=== PATIENT | male | born 1945 | race Caucasian/White ===

== ENCOUNTER 2016-11-08 13:14 | Day surgery (SDC) | payer MEDICARE, BC ==
[~2016-11-08 13:14] MED LIST: RINGERS SOLUTION,LACTATED 1,000 ML IV PRN
--- OUTSIDE RECORDS SUMMARY | 2016-11-08 13:18 | XMS REPORT | Continuity of Care Document ---
:1945 Author Organization [facility] ([facility]) Address [place] [address] Phone [phone] Care Team Providers Name Role Phone Baltazar Florentino Primary Care Provider [phone] Source Comments This disclosure is being made pursuant to the Care Everywhere program, applicable federal and state laws, and may not contain all informaitonavailable regarding this patient.[facility] ([facility]) Active Allergies and Adverse Reactions No Known Allergies Current Medications Prescription Sig. Disp. Refills Start Date End Date Status amLODIPine 5 mg tablet Take 5 mg by mouth Active daily. nitroglycerin 0.[address] 0.4 mg under Active SL tablet the tongue every 5 minutes as needed. Maximum of 3 tablets in 15 minutes. metoPROLol succinate Take 50 mg by Active 50 mg XL tablet mouth daily. polyethylene glycol Take 17 g by mouth 11/21/2015 Active 3350 (MIRALAX) 17 every evening. gram/dose powder aspirin 81 mg EC Take 81 mg by Active tablet mouth daily. albuterol 90 Use 1-2 Puffs by 8.5 g 11 04/22/2016 Active mcg/Actuation inhaler inhalation every 4 hours as needed. clonazePAM 1 mg tablet Take 1 mg by mouth 09/30/2016 Active at bedtime. finasteride 5 mg Take 1 tablet by 09/13/2016 Active tablet mouth daily. tamsulosin 0.4 mg Take 1 capsule by 07/26/2016 Active capsule mouth daily at noon after a meal. ketoconazole (NIZORAL) Apply topically 3 Active 2 % shampoo times weekly. trolamine (ASPERCREME) Apply topically 4 Active 10 % topical lotion times daily as needed. HYDROcodone-acetaminop Take 1-2 tablets 20 tablet 0 10/04/2016 Active hen 5-325 mg per by mouth every 6 tablet hours as needed. diazePAM 2 mg tablet Take 1-2 tablets 20 tablet 0 10/04/2016 Active (2-4 mg total) by mouth 3 times daily as needed. Active Problems Problem Noted Date Pneumonia 02/16/2016 Overview: IV antibiotics. Dehydration 02/16/2016 Overview: Monitor labs, urine output. Fluid boluses given. Paroxysmal atrial fibrillation 02/12/2016 Malaise 02/10/2016 Overview: monitor Leukocytosis 02/10/2016 Overview: Monitor. Started on IV vancomycin/zosyn Hypotension 02/10/2016 Overview: Fluid boluses. IV antibiotics started. Sepsis 02/10/2016 Overview: Concern for sepsis. Admitted with fever, leukocytosis, hypotension, afib. Started on IV antibiotics. Blood cultures obtained. UA negative. Severe protein-calorie malnutrition 02/10/2016 Overview: Formatting of this note may be different from the original. Malnutrition Assessment Malnutrition assessment date: 02/10/16 Dietitian evaluation: Severe protein-calorie malnutrition Type: Acute illness/injury Malnutrition etiology: lung cancer s/p lobectomy Energy intake: Less than or equal to 50% intake of estimated energy needs for greater than or equal to 5 days Weight loss: Greater than 5% in 1 month [7% in 2.5 weeks] Subcutaneous fat loss: Mild Muscle loss: Mild Was malnutrition present on admission? Yes Nutrition consulted. Fever 02/09/2016 Last Assessment & Plan: Monitor. Started on IV antibiotics. Pleural effusion 02/09/2016 Last Assessment & Plan: Chest tube remains in place. Monitor. Persistent air leak 01/28/2016 Overview: Chest tube to mini 500 dry seal vac. Last Assessment & Plan: Monitor. Pulmonary consulted for bronchoscopy to evaluate for BPF. 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 SOB (shortness of breath) 01/28/2016 Overview: monitor Cough 01/28/2016 Overview: Monitor. Atelectasis 01/28/2016 Overview: Pulmonary toilet Adenocarcinoma of lung 01/23/2016 Last Assessment & Plan: T1N0. Monitor surgical site healing. Preoperative cardiovascular examination 12/30/2015 Precordial pain 12/30/2015 COPD (chronic obstructive pulmonary disease) Last Assessment & Plan: Monitor pulmonary status. Hypertension Last Assessment & Plan: Monitor. Will continue to hold home blood pressure medications at this time. Tobacco abuse Last Assessment & Plan: Monitor respiratory status Resolved Problems Problem Noted Date Resolved Date New onset a-fib 02/10/2016 02/24/2016 Most Recent Encounters Date Type Specialty Providers Description 10/15/2016 Telephone Emergency Medicine Matthew Fenton RN Chief Comp: Follow-up 10/11/2016 Hospital Encounter Radiology Jm Parra, Chief Comp: Patient MD Reported Reason For Visit 10/11/2016 Orders/Notes Cancer Center Minal Charles MD 10/05/2016 Telephone Cancer [place] Mariann Boothe Chief Comp: Minal Solomon MD Appointment Info 10/04/2016 Hospital Encounter Emergency Medicine Samuel Freire, Dx: Acute MD right-sided back pain, unspecified back location (Primary Dx) 10/04/2016 Hospital Encounter Radiology Sara Hartley MD Chief Comp: Patient Reported Reason For Visit 10/04/2016 Hospital Encounter Radiology Baltazar Garcia MD Chief Comp: Patient Reported Reason For Visit 10/04/2016 Office Visit Med Pulmonary Mariann Boothe, Dx: History of lung Oncology Minal Solomon MD cancer (Primary Dx) 09/23/2016 Telephone Cancer Center Selene Perez Chief Comp: Appointment Info 09/23/2016 Telephone Cancer Center Esperanza Weiner Chief Comp: Back Pain 09/09/2016 Office Visit Med Pulmonary Mariann Boothe Chief Comp: Patient Oncology Minal Solomon MD Reported Reason For Visit Social History Tobacco Use Types Packs/Day Years Used Date Former Smoker Cigarettes 1.5 62 Quit: 12/24/2015 Smokeless Tobacco: Never Used Last Filed Vital Signs Vital Sign Reading Time Taken Blood Pressure 155/84 10/04/2016 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 Pulse 54 10/04/2016 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 Temperature 35.7 C (96.3 F) 10/04/2016 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 Respiratory Rate 20 10/04/2016 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 Height 1.778 m (5' 10") 10/04/2016 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 Weight 97.977 kg (216 lb) 10/04/2016 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 Body Mass Index 30.99 10/04/2016 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 Oxygen Saturation 95% 10/04/2016 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 Plan of Care Health Maintenance Due Date Last Done Comments Hepatitis B Vaccine (1 of 3 - Primary Series) 1945 Tdap Vaccine 02/02/1955 Lipid Disorder Screening 02/02/1962 Td Vaccine 02/02/1962 Colonoscopy 02/02/1994 Prostate Cancer Screening 02/02/1994 Zoster Vaccine 2004 Pneumococcal Vaccine (1 of 2 - PCV13) 02/02/2009 Influenza Vaccine: Seasonal (#1) 03/01/2016 Results from Last [address] - STORE ONLY (10/11/2016 11:35 AM)Only the most recent of2 resultswithin the time period is included.EXTERNAL MRI - STORE ONLY (10/04/2016 11:08 AM)
[2016-11-08] MEDS ORDERED: RINGERS SOLUTION,LACTATED 1,000 ML IV ONE (14:20)
[2016-11-08 17:24] VITALS: BP 120/72
--- NOTE | 2016-11-09 12:14 | OR ---
Operative Report - Dictated Report Narrative: OPERATIVE REPORT DATE OF OPERATION: 11/08/2016 PREOPERATIVE DIAGNOSIS: No recent dedicated colon studies. Sigmoid thickening on CT scan and diverticulosis. POSTOPERATIVE DIAGNOSIS: 4 mm polyp in the cecum (pathology pending). Significant sigmoid diverticulosis OPERATION: Colonoscopy with hot biopsy forceps polypectomy in the cecum SURGEON: Robert Zhang MD ANESTHESIA: ANA Bowers CRNA INDICATIONS FOR PROCEDURE: The patient is a 71-year-old male referred by Dr. Jessica Mary. The patient had a recent CT scan revealing diverticulosis and sigmoid thickening. His last colonoscopy was in 2008. FINDINGS: 4 mm area of polypoid change in the cecum. Significant sigmoid diverticulosis but no other lesions in the sigmoid. NARRATIVE OF PROCEDURE: The patient was identified in the holding area, and prior to the administration of anesthetic, a multidisciplinary timeout was observed. With the patient in the left lateral position and after the administration of intravenous sedation, the perineum was inspected. There was no evidence of pilonidal disease or skin breakdown. The external appearance of the anus was normal. Sphincter tone was good. The flexible fiberoptic colonoscope was inserted into the rectum which was insufflated with air. The rectal mucosa and submucosal vascular pattern appeared normal, the prep was seen to be complete. The scope was advanced through the sigmoid colon, which was tortuous and contained numerous large non-impacted noninflamed diverticular openings. The scope was advanced up the descending colon, and around the splenic flexure where the triangular haustral architecture of the transverse colon was seen. The scope was advanced across the transverse colon, around the hepatic flexure to the cecum, where the confluence of tenia and the ileocecal valve were identified. The mucosa at this level appeared normal. There was a single area of possible polypoid change on a proximal cecal fold which was biopsied and entirely destroyed with electrocautery. The site was seen to be complete and hemostatic. The scope was then slowly withdrawn in a circular fashion so that all aspects of colonic mucosa were inspected. The colon was relatively normal in course and caliber. The haustral architecture appeared well preserved throughout with no evidence of external compression. The mucosa and submucosal vascular pattern appeared normal, specifically there was no gross evidence to suggest colitis or inflammatory bowel disease and no AV malformations were seen. The diverticulosis was moderate to severe in degree and confined primarily to the sigmoid colon. The sigmoid was well seen on both entry and exit and no other suspicious lesions were identified. The scope was gradually withdrawn to the level of the rectum. As much insufflated air as possible was removed. The scope was withdrawn from the patient and the procedure terminated. The patient tolerated the anesthetic and procedure well without complication and was transferred back to the ambulatory surgery area awake and in stable condition. The patient remained stable throughout a period of postoperative observation. He denied abdominal discomfort, was able to tolerate by mouth intake, and was up without assistance. I shared the operative findings with the patient and he was given copies of the photographs which appear in the medical record. He was discharged home with instructions not to engage in hazardous activity today, but may resume normal activity tomorrow, and advance diet as tolerated. He is to continue those medications as listed in the history and physical exam. I made arrangements to contact him with the biopsy reports and will make additional recommendations for treatment and follow-up based upon those results. A pamphlet on diverticular disease was reviewed with him and given to him and suggestion made for trial of Benefiber or equivalent. Reviewed and electronically signed
[2016-11-12] MEDS ORDERED: RINGERS SOLUTION,LACTATED 1,000 ML IV PRN (08:50)
== END 2016-11-08 13:15 | disposition home or self-care (01) ==
LOC: AMB 13:14
PROVIDERS: ATTEND Surgery
PROC: 0DBH8ZX Excision of Cecum, Via Natural or Artificial Opening Endoscopic, Diagnostic (ICD-10-PCS; principal; 2016-11-08 14:30)
DX: Z12.11 Encounter for screening for malignant neoplasm of colon (principal); D12.0 Benign neoplasm of cecum; K57.30 Diverticulosis of large intestine without perforation or abscess without bleeding; I10 Essential (primary) hypertension; J44.9 Chronic obstructive pulmonary disease, unspecified; I48.91 Unspecified atrial fibrillation; F17.200 Nicotine dependence, unspecified, uncomplicated; Z68.31 Body mass index [BMI] 31.0-31.9, adult

== ENCOUNTER 2017-01-11 16:36 | Emergency (ER) | payer MEDICARE, BC ==
--- NOTE | 2017-01-11 17:02 | ERNOTE ---
Date of Service: 01/11/17 Time Seen by Provider: 01/11/17 16:52 Stated Complaint: TROUBLE BREATHING Presenting Symptoms:: cough Source: patient, RN notes reviewed, past records Exam Limitations: no limitations Immunizations: IMMUNIZATION HX Immunizations Up to Date Yes History of Influenza Vaccine No Hx Pneumococcal Vaccination No Allergies/Adverse Reactions: Allergies ampicillin [Ampicillin] Allergy (Mild, Verified 01/11/17 16:43) Lips swell gabapentin Adverse Reaction (Mild, Verified 01/11/17 16:43) dizziness, drowsiness tramadol Adverse Reaction (Mild, Verified 01/11/17 16:43) dizziness, drowsiness Home Medications: HOME MEDICATIONS Metoprolol Succinate [Toprol Xl] 50 mg PO HS 12/21/12 [Last Taken Unknown] amLODIPine BESYLATE [Norvasc (Amlodipine)] 5 mg PO DAILY 12/21/12 [Last Taken Unknown] Acetaminophen [Tylenol] 1,000 mg PO QAM 11/03/16 [Last Taken Unknown] Aspirin [Aspirin Enteric Coated] 81 mg PO DAILY 11/03/16 [Last Taken Unknown] Finasteride [Proscar] 5 mg PO DAILY 11/03/16 [Last Taken Unknown] Nitroglycerin [Nitrostat] 0.4 mg SL [id number] PRN 11/03/16 [Last Taken Unknown] Polyethylene Glycol 3350 [Miralax] 17 gm PO HS 11/03/16 [Last Taken Unknown] Psyllium Husk (with Sugar) [Metamucil Powder] 1 tbs PO DAILY 11/03/16 [Last Taken Unknown] Tamsulosin HCl [Flomax] 0.4 mg PO DAILY@1800 11/03/16 [Last Taken Unknown] Trolamine Salicylate/Aloe Vera [Aspercreme 10% Cream] 1 applic TP QID 11/03/16 [ Last Taken Unknown] clonazePAM [Klonopin] 1 mg PO HS 11/03/16 [Last Taken Unknown] Doxycycline Monohydrate 100 mg PO BID #20 tablet 01/11/17 [Last Taken Unknown] Pantoprazole Sodium [Protonix] 40 mg PO DAILY 01/11/17 [Last Taken Unknown] Pantoprazole Sodium [Protonix] 40 mg PO DAILY #30 tab 01/11/17 [Last Taken Unknown] - History of Present Ilness Narrative: Max is a 71 y/o male who presents to the ED for a cough that has been ongoing for about 5 months. He reports that the cough is not all that frequent, but when he does cough, he feels like he might pass out. He also reports some nasal congestion and sore throat. He has COPD and a history of adenocarcinoma of the right lung for which he underwent a lobectomy a year ago. He was a life long smoker until that time. He reports exertional dyspnea, but states this is not worse than usual and has not increased. He denies any chest pain. He sees pulmonology at [facility] and has an appointment for follow up next month. He contacted them yesterday about his symptoms and was directed to come here for evaluation. Associated Symptoms: Reports: cough, shortness of breath, facial pain, nasal congestion, headache. Denies: chest pain/soreness, wheezing, nasal drainage, dizziness, lightheadedness, muscle aches, fever/chills Prior Treatment: Denies: recently seen Review of Systems - Review of Systems Constitutional: Absent: fatigue, malaise, decreased activity level EYE: Present: no symptoms reported ENT: Present: See HPI Respiratory: Present: See HPI Cardiology: Present: See HPI Gastrointestinal/Abdominal: Absent: nausea, abdominal pain, eating less, drinking less Genitourinary: Present: no symptoms reported Musculoskeletal: Absent: back pain, muscle pain Skin: Absent: rash, lesions Neurological: Present: See HPI Endocrine: Present: no symptoms reported Hematologic/Lymphatic: Present: no symptoms reported Psych: Present: no symptoms reported - Patient's Past Medical History Patient History - Medical: GERD, Other Patient History - Cardiac/Respiratory: Atrial Fibrillation, COPD, Hypertension, Pneumonia, CPAP/BiPAP Home Use, Sleep Apnea Patient History - Cancer: Lung, Surgical Treatment Patient History - Surgical Procedures: Colonoscopy, Other Patient History - Other: None - Family History Mother Family History - Medical: , Diabetes Type 2 Family History - Cardiac/Respiratory: CHF Family History - Cancer: No pertinent family hx Sister Family History - Medical: Other Family History - Cardiac/Respiratory: No pertinent hx Family History - Cancer: No pertinent family hx Son Family History - Medical: No pertinent hx Family History - Cardiac/Respiratory: No pertinent hx Family History - Cancer: Leukemia Paternal Uncle Family History - Medical: No pertinent hx Family History - Cardiac/Respiratory: Other Family History - Cancer: No pertinent family hx - Social History Living Situations: home Abuse History: No History of abuse Psych History: No pertinent hx Smoking Status: Former smoker Alcohol Use: none Drug Use: other - Immunizations Immunizations Up to Date: Yes Hx Pneumococcal Vaccination: No History of Influenza Vaccine: No Physical Exam - Physical Exam General Appearance: Present: wd/wn, alert, no apparent distress Eye Exam: Normal inspection: bilateral Ears, Nose, Throat: Present: nasal congestion, pharyngeal erythema. Absent: abnormal TM (R), abnormal TM (L), pharyngeal swelling Neck: Present: normal inspection, supple, full range of motion, other - mild tenderness over anterior cervical nodes Respiratory: Present: no respiratory distress, no accessory muscle use, lungs clear, decreased breath sounds. Absent: expiration (prolonged), rales, wheezing Cardiovascular/Chest: Present: regular rate, rhythm, no murmur, normal peripheral pulses Extremity Exam: Present: normal inspection, no edema Neurological Exam: Present: alert, oriented, normal mood/affect, no motor/ sensory deficits Skin Exam: Present: normal color, warm/dry ED Progress - Results and Orders Patient's Lab Results:: I have reviewed the patient's lab results. - Vital Signs Patient's Vital Signs:: I have reviewed the patient's vital signs. Vital Signs: Vital Signs 01/11/17 16:39 Temperature 36.6 C Pulse Rate 68 Respiratory 12 Rate Blood Pressure 161/88 O2 Sat by Pulse 94 Oximetry - X-Ray X-Ray #1 X-Ray: chest Interpretation: Reviewed by me X-ray Comments: Technique: Frontal and lateral views of the chest are evaluated. (2) views. Comparison: Prior exams, most recent is CT chest dated October 07, 2016. Findings: Postsurgical changes are again demonstrated at the right lung base. There is unchanged blunting of the right lateral and right posterior costophrenic angles. The left lateral and posterior costophrenic angles are sharp. No pneumothorax. No focal consolidation. The cardiac silhouette and mediastinal contours are unchanged. The pulmonary vasculature is normal. Atherosclerotic changes are present throughout the visualized thoracic aorta. The osseous structures are remarkable for degenerative changes. No acute osseous findings. IMPRESSION: No acute pulmonary findings. No significant interval change. Electronically signed by Alexandr Zarate D.O.. Alexandr Zarate DO - Progress/Reassessment Chief Complaint: Cough Departure - Departure Clinical Impression: COPD (chronic obstructive pulmonary disease) Qualifiers: COPD type: COPD with acute exacerbation Qualified Code(s): J44.1 - Chronic obstructive pulmonary disease with (acute) exacerbation Disposition: Home Follow Up Needed Condition: Stable Instructions: Chronic Obstructive Pulmonary Disease Exacerbation, [id number] Additional Instructions: Contact your power originator to move up your appointment, return to ER if symptoms worsen Referrals: Baltazar Engle MD [Primary Care Provider] - Prescriptions: Doxycycline Monohydrate 100 mg PO BID #20 tablet Pantoprazole Sodium [Protonix] 40 mg PO DAILY #30 tab
--- OUTSIDE RECORDS SUMMARY | 2017-01-11 17:07 | XMS REPORT | Continuity of Care Document ---
:1945 Author Organization [facility] ([facility]) Address [place] [address] Phone [phone] Care Team Providers Name Role Phone Baltazar Florentino Primary Care Provider [phone] Source Comments This disclosure is being made pursuant to the Care Everywhere program, applicable federal and state laws, and may not contain all informaitonavailable regarding this patient.[facility] ([facility]) Active Allergies and Adverse Reactions No Known [...] Recent Encounters Date Type Specialty Providers Description 01/10/2017 Telephone Cancer Center Mariann Boothe, Chief Comp: Cough Minal Solomon MD 10/15/2016 Telephone Emergency Medicine Matthew Fenton RN Chief Comp: Follow-up 10/11/2016 Hospital Encounter Radiology Jm Parra, Chief Comp: Patient MD Reported Reason For Visit 10/11/2016 Orders/Notes Cancer Center Minal Charles MD Social History Tobacco Use Types Packs/Day Years Used Date Former Smoker Cigarettes 1.5 62 Quit: 12/24/2015 Smokeless Tobacco: Never Used Last Filed Vital Signs Vital Sign Reading Time Taken Blood Pressure 155/84 10/04/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 Pulse 54 10/04/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 Temperature 35.7 C (96.3 F) 10/04/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 Respiratory Rate 20 10/04/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 Height 1.778 m (5' 10") 10/04/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 Weight 97.977 kg (216 lb) 10/04/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 Body Mass Index 30.99 10/04/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 Oxygen Saturation 95% 10/04/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 Plan of Care Date Type Specialty Providers Description 02/14/2017 Appointment Radiology Chief Comp: Patient Reported Reason For Visit 02/14/2017 Appointment Med Pulmonary Mariann Boothe, Chief Comp: Patient Oncology Minal Solomon MD Reported Reason For [address] [place] [address] [phone] (Fax) Health Maintenance Due Date Last Done Comments Hepatitis B Vaccine (1 of 3 - Primary Series) 1945 Tdap Vaccine 02/02/1955 Lipid Disorder Screening 02/02/1962 Td Vaccine 02/02/1962 Colonoscopy 02/02/1994 Zoster Vaccine 2004 Pneumococcal Vaccine (1 of 2 - PCV13) 02/02/2009 Influenza Vaccine: Seasonal (Season Ended) 2017 Results from Last [address] - STORE ONLY (10/11/2016 11:35 AM)
[2017-01-11 17:20] LABS: Hematocrit 44.6 % (42.0-52.0); Hemoglobin 15.5 gm/dL (13.5-18.0); Mean Cell Volume 88.7 fl (78-100); Mean Corpuscular Hemoglobin 30.8 pg (27-31); Mean Corpuscular Hgb Conc 34.8 g/dl (32-36); Mean Platelet Volume 9.3 fl (6.0-9.5); Neutrophil # 4.8 K/mm3 (1.3-6.0); Neutrophil % 58.3 % (42-75.0); Platelet Count 221 K/mm3 (150-450); Red Blood Count 5.03 M/mm3 (4.7-6.0); White Blood Count 8.2 K/mm3 (4.0-10.5)
[2017-01-11 17:33] LABS: Albumin * 3.5 gm/dl (3.4-5.0); Bilirubin, Total 0.3 mg/dL (0.0-1.1); Ca. Corrected For Albumin 8.9 mg/dL (8.4-10.2); Calcium * 8.8 mg/dL (7.9-10.9); Carbon Dioxide 26.2 mmol/L (24-32.6); Potassium 4.2 mmol/L (3.4-4.6); Total Protein 6.8 gm/dL (6.2-8.2)
[2017-01-11] MEDS ORDERED: DOXYCYCLINE HYCLATE 100 MG TABLET PO ONE (18:05)
[2017-01-11] MEDS ORDERED: DOXYCYCLINE HYCLATE 100 MG TABLET ONE (18:08)
[2017-01-11 18:16] VITALS: BP 138/69
== END 2017-01-11 18:12 | disposition home or self-care (01) ==
LOC: ER 16:36
DX: J44.1 Chronic obstructive pulmonary disease with (acute) exacerbation (principal); K21.9 Gastro-esophageal reflux disease without esophagitis; I48.91 Unspecified atrial fibrillation; Z79.01 Long term (current) use of anticoagulants; I10 Essential (primary) hypertension; Z85.118 Personal history of other malignant neoplasm of bronchus and lung

== ENCOUNTER 2017-03-21 08:40 | Emergency (ER) | payer MEDICARE, BC ==
[2017-03-21 08:55] VITALS: BP 161/105
--- NOTE | 2017-03-21 10:12 | ERNOTE ---
Lower Extremity HPI - Narrative Date of Service: 03/21/17 - General Lower Extremities Pain: foot: left Time Seen by Provider: 03/21/17 08:57 Source: patient Exam Limitations: no limitations - Immun/Allergies/Home Medications Immunizations: IMMUNIZATION HX Immunizations Up to Date Yes History of Influenza Vaccine No Hx Pneumococcal Vaccination No Allergies/Adverse Reactions: Allergies Allergy/AdvReac Type Severity Reaction Status Date / Time ampicillin [Ampicillin] Allergy Mild Lips swell Verified 03/21/17 08:57 gabapentin AdvReac Mild dizziness, Verified 03/21/17 08:57 drowsiness tramadol AdvReac Mild dizziness, Verified 03/21/17 08:57 drowsiness Home Medications: HOME MEDICATIONS Metoprolol Succinate [Toprol Xl] 50 mg PO HS 12/21/12 [Last Taken Unknown] Acetaminophen [Tylenol] 1,000 mg PO QAM 11/03/16 [Last Taken Unknown] Aspirin [Aspirin Enteric Coated] 81 mg PO DAILY 11/03/16 [Last Taken Unknown] Finasteride [Proscar] 5 mg PO DAILY 11/03/16 [Last Taken Unknown] Nitroglycerin [Nitrostat] 0.4 mg SL [id number] PRN 11/03/16 [Last Taken Unknown] Polyethylene Glycol 3350 [Miralax] 17 gm PO HS 11/03/16 [Last Taken Unknown] Psyllium Husk (with Sugar) [Metamucil Powder] 1 tbs PO DAILY 11/03/16 [Last Taken Unknown] Tamsulosin HCl [Flomax] 0.4 mg PO DAILY@1800 11/03/16 [Last Taken Unknown] Trolamine Salicylate/Aloe Vera [Aspercreme 10% Cream] 1 applic TP QID 11/03/16 [ Last Taken Unknown] clonazePAM [Klonopin] 1 mg PO HS 11/03/16 [Last Taken Unknown] Pantoprazole Sodium [Protonix] 40 mg PO DAILY #30 tab 01/11/17 [Last Taken Unknown] Fluticasone Furoate [Flonase Sensimist] 9.9 ml NS DAILY 03/21/17 [Last Taken Unknown] - History of Present Illness Narrative: Patient presents with 5 days of left plantar foot pain. He relates no injury. This pain has been bothering him and started without injury. Hurts to press on the bottom of his foot and to step on the area. This is over the area of his plantar fascia. No N/T/W. No ankle pain. he localizes the pain to the area of his plantar fascia and grimaces when he pushes on the area. No pain dorsum of foot. No fever. Denies other Sx. Occurred: other - 5 days ago Method of Injury: Reports: other - none Modifying Factors - (Improves): Reports: rest Modifying Factors - (Worsens): Reports: other - walking and palpation Associated Symptoms: Denies: unable to bear weight, weakness, sensory loss Other Injuries: Reports: none Prior Treament: Denies: recently seen Review of Systems - Review of Systems Constitutional: Absent: fever Musculoskeletal: Present: See HPI Skin: Absent: rash Neurological: Present: See HPI - Patient's Past Medical History Patient History - Medical: GERD, Other Patient History - Cardiac/Respiratory: Atrial Fibrillation, COPD, Hypertension, Pneumonia, CPAP/BiPAP Home Use, Sleep Apnea Patient History - Cancer: Lung, Surgical Treatment Patient History - Surgical Procedures: Colonoscopy, Other Patient History - Other: None - Family History Mother Family History - Medical: , Diabetes Type 2 Family History - Cardiac/Respiratory: CHF Family History - Cancer: No pertinent family hx Sister Family History - Medical: Other Family History - Cardiac/Respiratory: No pertinent hx Family History - Cancer: No pertinent family hx Son Family History - Medical: No pertinent hx Family History - Cardiac/Respiratory: No pertinent hx Family History - Cancer: Leukemia Paternal Uncle Family History - Medical: No pertinent hx Family History - Cardiac/Respiratory: Other Family History - Cancer: No pertinent family hx - Social History Living Situations: home Abuse History: No History of abuse Psych History: No pertinent hx Smoking Status: Former smoker Have you smoked in the past 12 months: No Alcohol Use: none Drug Use: other - Immunizations Immunizations Up to Date: Yes Hx Pneumococcal Vaccination: No History of Influenza Vaccine: No Physical Exam - Physical Exam General Appearance: Present: alert, no apparent distress Head Exam: Present: normal inspection, no evidence of injury Eye Exam: Normal inspection: bilateral Respiratory: Present: no respiratory distress Cardiovascular/Chest: Present: normal peripheral pulses, other - strong DP pulse Extremity Exam: Present: other - There is no redness or swelling of the foot. There is no tendenress to the dorsum of the foot. there is no Achilles tendenress and achilles is intact. There is is tenderness over the plantar fascia that completely reproduces his pain. no FB, no laceration. Foot warm and well perfused. Nothign to suggest osteo, DVT, infection, septic arthritis, gout or other life/limb threat. Clinically this is a plantar fasciitis. Neurological Exam: Present: alert, normal mood/affect, no motor/sensory deficits. Absent: motor weakness Skin Exam: Present: normal color, warm/dry ED Progress - Vital Signs Patient's Vital Signs:: I have reviewed the patient's vital signs. Vital Signs: Vital Signs 03/21/17 08:51 Temperature 36.5 C Pulse Rate 55 L Respiratory 16 Rate Blood Pressure 161/105 O2 Sat by Pulse 94 Oximetry - X-Ray X-Ray #1 X-Ray: foot Interpretation: Interp. by me X-ray Comments: I reviewed the official radiology report - Progress/Reassessment Chief Complaint: Foot Injury/Pain Progress Note-Subjective: 03/21/17 10:10 Clinically this appears to be most c/w plantar fasciitis. No suggestion of septic arthritis, fracture or other etiology, no clinical infectious process. He wants to stay with tylenol for pain, I did offer additional pain meds but he declines this. I offered post-op shoe. Needs PCP follow-up. i discussed warning signs and reasons to return as well as the need for close f/u. Departure Clinical Impression: Foot pain - Departure Disposition: Home self-care Condition: Stable Additional Instructions: Rest. Ice. Tylenol. Post-op shoe for comfort. Return for fever, redness, increased pain, numbness, tingling, weakness or if your condition worsens or changes in any way. Referrals: Baltazar Engle MD [Primary Care Provider] -
== END 2017-03-21 10:10 | disposition home or self-care (01) ==
LOC: ER 08:40
DX: M79.672 Pain in left foot (principal); K21.9 Gastro-esophageal reflux disease without esophagitis; I48.91 Unspecified atrial fibrillation; Z79.01 Long term (current) use of anticoagulants; J44.9 Chronic obstructive pulmonary disease, unspecified; I10 Essential (primary) hypertension; Z85.118 Personal history of other malignant neoplasm of bronchus and lung

== ENCOUNTER 2017-08-12 11:10 | Emergency (ER) | payer MEDICARE, BC ==
[2017-08-12] MEDS ORDERED: hydrALAZINE HCL 20 MG/ML VIAL IV ONE (11:39)
[2017-08-12 11:57] LABS: Hemoglobin 15.8 gm/dL (13.5-18.0); Mean Cell Volume 90.2 fl (78-100); Mean Corpuscular Hemoglobin 30.3 pg (27-31); Mean Corpuscular Hgb Conc 33.6 g/dl (32-36); Mean Platelet Volume 9.4 fl (6.0-9.5); Neutrophil # 4.4 K/mm3 (1.3-6.0); Neutrophil % 62.7 % (42-75.0); Platelet Count 186 K/mm3 (150-450); Red Blood Count 5.21 M/mm3 (4.7-6.0); Red Cell Distribution Width 13.5 % (11.5-14.0)
[2017-08-12] MEDS ORDERED: hydrALAZINE HCL 20 MG/ML VIAL ONE (12:00)
[2017-08-12 12:11] LABS: ALT 24 U/L (19-67); AST 17 U/L (0-48); Albumin * 3.4 gm/dl (3.4-5.0); Alkaline Phosphatase * 108 U/L (50-170); Anion Gap 10.2 mmol/L (6.8-13.8); Bilirubin, Total 0.6 mg/dL (0.0-1.1); Blood Urea Nitrogen 20 mg/dL (6-23); Ca. Corrected For Albumin 8.7 mg/dL (8.4-10.2); Calcium * 8.5 mg/dL (7.9-10.9); Carbon Dioxide 29.7 mmol/L (24-32.6); Chloride 106 mmol/L (97-106); Glucose * 114 mg/dL (70-110); Potassium 4.9 mmol/L (3.4-4.6); Sodium 141 mmol/L (132-142); Total Protein 6.5 gm/dL (6.2-8.2)
[2017-08-12 12:12] LABS: Salicylate Less than 2.8 mg/dL (2.8-20.0)
[2017-08-12 12:32] LABS: Urine Bilirubin Negative (NEGATIVE); Urine Ketone Negative (NEGATIVE); Urine Nitrite Negative (NEGATIVE); Urine Protein Negative (NEGATIVE); Urine Urobilinogen Normal (NORMAL)
[2017-08-12 12:44] LABS: Cocaine Ur Negative (NEGATIVE); Urine Appearance Clear; Urine Bacteria None Seen; Urine Barbiturate Negative (NEGATIVE); Urine Benzodiazepines Negative (NEGATIVE); Urine Blood 5 /ul (NEGATIVE); Urine Color Yellow; Urine Opiates Negative (NEGATIVE); Urine PCP Negative (NEGATIVE); Urine RBC None Seen /hpf (0-5); Urine THC Negative (NEGATIVE); Urine WBC None Seen /hpf (0-5)
[2017-08-12 13:37] VITALS: BP 131/67
--- NOTE | 2017-08-12 13:44 | ERNOTE ---
Neuro HPI ER Record Date of Service: 08/12/17 Presenting Symptoms: weakness, confusion Time Seen by Provider: 08/12/17 11:30 Source: patient, family Exam Limitations: no limitations Immunizations: IMMUNIZATION HX Immunizations Up to Date Yes History of Influenza Vaccine No Hx Pneumococcal Vaccination No Allergies/Adverse Reactions: Allergies Allergy/AdvReac Type Severity Reaction Status Date / Time ampicillin [Ampicillin] Allergy Mild Lips swell Verified 03/21/17 08:57 gabapentin AdvReac Mild dizziness, Verified 03/21/17 08:57 drowsiness tramadol AdvReac Mild dizziness, Verified 03/21/17 08:57 drowsiness Home Medications: HOME MEDICATIONS Metoprolol Succinate [Toprol Xl] 50 mg PO HS 12/21/12 [Last Taken Unknown] Acetaminophen [Tylenol] 1,000 mg PO QAM 11/03/16 [Last Taken Unknown] Aspirin [Aspirin Enteric Coated] 81 mg PO DAILY 11/03/16 [Last Taken Unknown] Finasteride [Proscar] 5 mg PO DAILY 11/03/16 [Last Taken Unknown] Nitroglycerin [Nitrostat] 0.4 mg SL [id number] PRN 11/03/16 [Last Taken Unknown] Polyethylene Glycol 3350 [Miralax] 17 gm PO HS 11/03/16 [Last Taken Unknown] Psyllium Husk (with Sugar) [Metamucil Powder] 1 tbs PO DAILY 11/03/16 [Last Taken Unknown] Tamsulosin HCl [Flomax] 0.4 mg PO DAILY@1800 11/03/16 [Last Taken Unknown] Trolamine Salicylate/Aloe Vera [Aspercreme 10% Cream] 1 applic TP QID 11/03/16 [ Last Taken Unknown] clonazePAM [Klonopin] 1 mg PO HS 11/03/16 [Last Taken Unknown] Pantoprazole Sodium [Protonix] 40 mg PO DAILY #30 tab 01/11/17 [Last Taken Unknown] Fluticasone Furoate [Flonase Sensimist] 9.9 ml NS DAILY 03/21/17 [Last Taken Unknown] hydrALAZINE HCL [Hydralazine HCl] 25 mg PO BID #30 tablet 08/12/17 [Last Taken Unknown] - History of Present Illness Context: other - patient nooted patient mildy confused this am. on presentation to ed systolic bp noted to be over 200 - Character of Deficits New weakness: Present: general (diffuse) Baseline Cognition: Present: alert, oriented x 4 Baseline Gait: Present: walks w/o assistance Associated Symptoms: Reports: altered mental status Prior Treament: Reports: recently seen, treated by physician, recently hospitalized Review of Systems - Narrative Narrative: patient appears to be in mild distress - Review of Systems Constitutional: Present: See HPI EYE: Present: no symptoms reported ENT: Present: no symptoms reported Respiratory: Present: no symptoms reported Cardiology: Present: no symptoms reported Gastrointestinal/Abdominal: Present: no symptoms reported Genitourinary: Present: no symptoms reported Musculoskeletal: Present: no symptoms reported Skin: Present: no symptoms reported Neurological: Present: weakness, other - mild confusion Endocrine: Present: no symptoms reported Hematologic/Lymphatic: Present: no symptoms reported Psych: Present: no symptoms reported - Narrative Narrative: unremarkable - Patient's Past Medical History Patient History - Medical: GERD, Other Patient History - Cardiac/Respiratory: Atrial Fibrillation, COPD, Hypertension, Pneumonia, CPAP/BiPAP Home Use, Sleep Apnea Patient History - Cancer: Lung, Surgical Treatment Patient History - Surgical Procedures: Colonoscopy, Other Patient History - Other: None - Family History Family History:: no untoward family reactions to anesthesia, no familial bleeding tendencies, no family history of clotting disorders, no family history of premature - Family History Mother Family History - Medical: , Diabetes Type 2 Family History - Cardiac/Respiratory: CHF Family History - Cancer: No pertinent family hx Sister Family History - Medical: , Other Family History - Cardiac/Respiratory: No pertinent hx Family History - Cancer: No pertinent family hx Son Family History - Medical: No pertinent hx Family History - Cardiac/Respiratory: No pertinent hx Family History - Cancer: Leukemia Paternal Uncle Family History - Medical: No pertinent hx Family History - Cardiac/Respiratory: No pertinent hx, Other Family History - Cancer: No pertinent family hx - Social History Living Situations: spouse Abuse History: No History of abuse Psych History: No pertinent hx Smoking Status: Former smoker Have you smoked in the past 12 months: No Do you dip or chew tobacco: No Patient requests Smoking Cessation Consult: No Initiate information on Smoking Cessation: No Alcohol Use: none Drug Use: none - Immunizations Immunizations Up to Date: Yes Hx Pneumococcal Vaccination: No History of Influenza Vaccine: No Physical Exam - Physical Exam Narrative: patient appears in no distress General Appearance: Present: mild distress, anxious Head Exam: Present: normal inspection, no evidence of injury Eye Exam: Normal inspection: bilateral, PERRL: bilateral, EOMI: bilateral Ears, Nose, Throat: Present: normal ENT inspection Neck: Present: normal inspection, nontender Respiratory: Present: no respiratory distress, normal breath sounds Cardiovascular/Chest: Present: regular rate, rhythm, no murmur, normal peripheral pulses Peripheral Pulses: N=norm/S=strong/W=weak/B=bound/A=absent: Carotid (R): Normal , Carotid (L): Normal, Radial (R): Normal, Radial (L): Normal, Femoral (R): Normal, Femoral (L): Normal, Dorsalis-pedis (R): Normal Gastrointestinal/Abdominal: Present: normal bowel sounds, nontender, nondistended, soft, no organomegaly Back Exam: Present: normal inspection, normal range of motion, no CVA tenderness , no vertebral tenderness Extremity Exam: Present: normal inspection, normal range of motion Neurological Exam: Present: alert, oriented, normal mood/affect, no motor/ sensory deficits DTR: N=norm/NB=norm/brisk/A=abs/DD=dull/dimin/HC=hyperactive: Bicep (R): Normal , Bicep (L): Normal, Tricep (R): Normal, Tricep (L): Normal, Knee (R): Normal, Knee (L): Normal, Ankle (R): Normal, Ankle (L): Normal Skin Exam: Present: normal color, warm/dry Lymphatic Exam: Present: no adenopathy Gypsum Coma Scale - Assess Motor: Obeys Commands Verbal: Oriented - 14 ED Progress - Date and Time Seen: Date and Time: 08/12/17 13:40 patient improved, discussed ct and labs - Results and Orders Patient's Lab Results:: I have reviewed the patient's lab results. - Vital Signs Patient's Vital Signs:: I have reviewed the patient's vital signs. Vital Signs: Vital Signs 08/12/17 08/12/17 08/12/17 11:13 11:33 11:55 Temperature 36.1 C L Pulse Rate 52 L 50 L 51 L Respiratory 14 14 Rate Blood Pressure 204/101 207/105 O2 Sat by Pulse 96 94 Oximetry 08/12/17 08/12/1708/12/18 12:09 12:12 12:32 Temperature 36.4 C Pulse Rate 52 L 52 L 57 L Respiratory 21 H 14 Rate Blood Pressure 200/91 200/91 120/71 O2 Sat by Pulse 95 94 Oximetry 08/12/17 13:00 Temperature Pulse Rate 56 L Respiratory 12 Rate Blood Pressure 133/72 O2 Sat by Pulse 96 Oximetry - EKG EKG: NSR EKG read: Interp. by me - Progress/Reassessment Chief Complaint: Altered Mental Status Progress:: Improved - Transfer of Care Expected Disposition: Discharge Plan - Plan Plan: patient improved, discussed f/u with f/p Departure Clinical Impression: Hypertension - Departure Disposition: Home Follow Up Needed Condition: Fair Instructions: Hypertension, [id number] Prescriptions: hydrALAZINE HCL [Hydralazine HCl] 25 mg PO BID #30 tablet
== END 2017-08-12 13:58 | disposition home or self-care (01) ==
LOC: ER 11:10
DX: I10 Essential (primary) hypertension (principal); R40.2410 Glasgow coma scale score 13-15, unspecified time; I48.91 Unspecified atrial fibrillation; Z87.891 Personal history of nicotine dependence; K21.9 Gastro-esophageal reflux disease without esophagitis; Z85.118 Personal history of other malignant neoplasm of bronchus and lung
CPT/HCPCS: 36415; 70450; 71046; 80053; 80307; 81001; 85025; 93005; 94762; 96374; 99284; G0480; G0481

== ENCOUNTER 2020-08-08 22:08 | Observation (INO) ==
--- NOTE | 2020-08-08 22:23 | ERNOTE ---
Chest Pain/Cardiac HPI Date of Service: 08/08/20 Chief Complaint: Chest Pain Time Seen by Provider: 08/08/20 22:20 Source: patient Exam Limitations: no limitations Immunizations: IMMUNIZATION HX Immunizations Up to Date Yes History of Influenza Vaccine No Hx Pneumococcal Vaccination No Allergies/Adverse Reactions: Allergies ampicillin [Ampicillin] Allergy (Mild, Verified 08/08/20 22:17) Lips swell gabapentin Adverse Reaction (Mild, Verified 08/08/20 22:17) dizziness, drowsiness tramadol Adverse Reaction (Mild, Verified 08/08/20 22:17) dizziness, drowsiness Home Medications: HOME MEDICATIONS nitroglycerin 0.4 mg sublingual tablet 0.4 mg SL [id number] PRN #25 tab 03/06/18 [Last Taken Unknown] Fluticasone Propionate [Flonase] 1 spray NS DAILY 10/19/18 [Last Taken Unknown] albuterol sulfate 90 mcg/actuation aerosol inhaler See Rx Instructions .ROUTE .COMPLEX #18 unknown measurement unit code: gram 09/07/19 [Last Taken Unknown] metoprolol succinate 50 mg capsule sprinkle, ext. release 24 hr 50 mg PO DAILY #90 ea 12/03/19 [Last Taken Unknown] tamsulosin 0.4 mg capsule 0.4 mg PO DAILY #90 cap 04/08/20 [Last Taken Unknown] clonazepam 1 mg tablet 1 mg PO HS #30 tab 06/17/20 [Last Taken Unknown] pantoprazole 40 mg tablet,delayed release See Rx Instructions .ROUTE .COMPLEX #30 unknown measurement unit code: not specified 07/23/20 [Last Taken Unknown] Losartan Potassium [Cozaar] 1 tab PO DAILY 08/08/20 [Last Taken Unknown] Polyethylene Glycol 3350 [Clearlax] 1 gm PO DAILY 08/08/20 [Last Taken Unknown] Narrative: Patient is a 75-year-old male that presents to the emergency department with sudden onset of midsternal chest pain improved after nitro x2. Patient has prior history of coronary artery disease, COPD, atrial fib, HTN, and lung cancer. Patient states the nitro relieved his pain and when he presented to the ED his pain was rated negligible at a 2. Patient also noted swelling to the right arm and patient states he was concerned about a blood clot in his lungs. Patient is currently receiving radiation treatment for lung cancer. Patient states he had been on Eliquis but it was discontinued. Date (Duration): 08/08/20 Timing: constant Severity/Quality: mild Location: substernal Chest Pain Radiation: no radiation Activities at Onset: none Modifying Factors - Improves: Present: nitroglycerin Modifying Factors - Worsens: Present: nothing Nitro Today/Relief: 0.4 mg x 2 Aspirin Treatment Today: no aspirin today Associated Symptoms: Present: other - right arm swelling Prior Chest Pain/Cardiac Workup: Reports: prior chest pain Review of Systems - Review of Systems Constitutional: Present: no symptoms reported EYE: Present: no symptoms reported ENT: Present: no symptoms reported Respiratory: Present: shortness of breath Cardiology: Present: chest pain Gastrointestinal/Abdominal: Present: no symptoms reported Genitourinary: Present: no symptoms reported Musculoskeletal: Present: other - right arm swelling Skin: Present: no symptoms reported Neurological: Present: no symptoms reported Endocrine: Present: no symptoms reported Hematologic/Lymphatic: Present: no symptoms reported Psych: Present: no symptoms reported All Other Systems: All systems neg except as marked Medical History (Last Reviewed 08/09/20 @ 00:46 by Lilly Dalal MD) Constipation (Chronic) Change in bowel function (Chronic) Angina pectoris (Acute) Erectile dysfunction (Acute) I will withhold the finasteride. Hypotension due to medication (Acute) Hyperglycemia (Acute) Renal insufficiency (Acute) Atrial fibrillation (Acute) Acute bronchitis (Acute) COPD (chronic obstructive pulmonary disease) Onset Date: Unknown History of lung cancer Onset Date: ~2015 Surgical History: Surgical History (Last Reviewed 08/09/20 @ 00:46 by Lilly Dalal MD) History of bronchoscopy Onset Date: ~01/2016 [facility] History of chest tube placement Onset Date: ~01/2016 [facility] History of colonoscopy Onset Date: 11/08/16 03/14/09 Ronni-sigmoid diverticula. 11/08/16 Vicente-hyperplastic polyp, diverticulosis. Recheck 10 yrs. History of elbow surgery Onset Date: 04/22/11 [facility]-left olecranon process osteotomy, bursectomy. Excision left elbow mass-epidermal inclusion cyst w/chronic inflammation and fibrosis. History of lung surgery Onset Date: 01/23/16 [facility]-Right lower lobe of lung removed-adenocarcinoma Family History: Family History (Last Reviewed 08/09/20 @ 00:46 by Lilly Dalal MD) Mother , age 80-CHF Diabetes Heart disease Father , age 96-old age Heart disease Brother , age 78-bleeding after an operation CHF (congestive heart failure) Brother Diabetes 1 brother Heart disease 1 brother Sister Alive and well Son Cancer leukemia Uncle Heart disease paternal-CABG Social History: (Last Reviewed 08/09/20 @ 00:46 by Lilly Dalal MD) Social History: Marital status: household members: spouse number of children: 2 current occupational status: employed current occupation: Self employed Service: No Tobacco: Smoking Status: Former smoker Alcohol: alcohol intake: former Substance Use: substance use type: does not use Dietary Habits: caffeine: Yes Juhi/Mosque: juhi/jain: Confucianist Juhi Personal Safety: victim of physical abuse: No victim of emotional abuse: No Physical Exam - Physical Exam General Appearance: Present: wd/wn, alert, mild distress Head Exam: Present: normal inspection Eye Exam: Normal inspection: bilateral Neck: Present: normal inspection Respiratory: Present: no respiratory distress Cardiovascular/Chest: Present: tachycardia, irregularly irregular Peripheral Pulses: N=norm/S=strong/W=weak/B=bound/A=absent: Radial (R): Normal, Radial (L): Normal, Dorsalis-pedis (R): Normal, Dorsalis-pedis (L): Normal Gastrointestinal/Abdominal: Present: normal bowel sounds, nontender, nondistended Back Exam: Present: normal inspection Extremity Exam: Present: other - swelling and tenderness right antecubital fossa Neurological Exam: Present: alert, oriented, normal mood/affect, no motor/sensory deficits Skin Exam: Present: normal color, warm/dry Progress - Results and Orders Patient's Lab Results:: I have reviewed the patient's lab results. - Vital Signs Patient's Vital Signs:: I have reviewed the patient's vital signs. Vital Signs: Vital Signs 08/08/20 22:08 Temperature 36.3 C Pulse Rate 110 H Respiratory Rate 28 H Blood Pressure 168/93 H O2 Sat by Pulse Oximetry 99 - EKG EKG #1 EKG: atrial fibrillation EKG read: Interp. by me - X-Ray X-Ray #1 X-Ray: chest - CXR findings are consistent with history of right lower lobe lung canccer - CT/Ultrasound CT/Ultrasound Narrative: No pulmonary emboli identified. Emphysema noted. Peripheral pulmonary nodular density in the right lower lobe with surrounding interstitial and airspace opacities. This may represent the clinical history of lung cancer radiation treatment indicated in the clinical history. Superimposed pneumonia is not excluded. - Progress/Reassessment Chief Complaint: Chest Pain Progress:: Improved Progress Note-Subjective: 08/09/20 01:01 Patient is resting comfortably and watching TV with no reoccurrence of chest pain. Lab is reassuring. CT is negative for PE. Repeat troponin is obtained and if negative patient will be placed back on Eliquis for atrial fib and treated with antibiotic for possible phlebitis right arm with early follow up with family physician. 08/09/20 02:07 Delta troponin is 0.090. Patient is advised that admission for trending of troponin and observation is advised. Eliquis is resumed. Next troponin is ordered for 0500 and rapid Covid screen is obtained. Case is discussed with Dr. Davison who will admit the patient. Reviewed findings with patient who states that he has intermittent chest pain resolved by rest but worse today. Today is the first time that he has used nitro. Patient had prior cardiac cath in 2016 before surgery for lung cancer. Plan - Plan Plan: Troponin baseline and delta. CTA with history of atrial fib and no longer on Eliquis, lung cancer, and right arm swelling. Admit for bump in delta troponin with history of intermittent chest pain improved with rest requiring use of SL nitro tonight. Departure Clinical Impression: Chest pain, Thrombophlebitis - Departure Disposition: Still a patient Condition: Stable
[2020-08-08] MEDS ORDERED: ASPIRIN 81 MG TAB.CHEW PO ONE (22:34)
[2020-08-08 22:43] LABS: Hemoglobin 15.9 gm/dL (13.5-18.0); Mean Cell Volume 94.3 fl (78-100); Mean Corpuscular Hgb Conc 31.8 g/dl (32-36); Mean Platelet Volume 9.6 fl (8-11.3); Neutrophil # 4.6 K/mm3 (1.3-6.0); Neutrophil % 68.9 % (42-75.0); Platelet Count 145 K/mm3 (150-450); White Blood Count 6.7 K/mm3 (4.0-10.5)
[2020-08-08 22:54] LABS: Prothrombin Time (Patient) 9.7 Seconds (9.1-10.7)
[2020-08-08 22:55] LABS: INR 0.98 INR (0.92-1.08)
[2020-08-08 23:04] LABS: ALT 28 U/L (19-67); AST 12 U/L (0-48); Albumin * 3.4 gm/dl (3.4-5.0); Alkaline Phosphatase * 133 U/L (50-170); Anion Gap 10.9 mmol/L (6.8-13.8); BNP * 259 pg/mL (5-650); BUN/Creatinine Ratio 16.5 (9.0-21.6); Bilirubin, Total 0.4 mg/dL (0.0-1.1); Blood Urea Nitrogen 21 mg/dL (6-23); Ca. Corrected For Albumin 9.2 mg/dL (8.4-10.2); Carbon Dioxide 24.8 mmol/L (24-32.6); Chloride 109 mmol/L (97-106); Glucose * 146 mg/dL (70-110); Potassium 3.7 mmol/L (3.4-4.6); Sodium 141 mmol/L (132-142); Total Protein 6.2 gm/dL (6.2-8.2)
[2020-08-08 23:06] LABS: Troponin I Less than 0.017 ng/mL (0.00-0.10)
[2020-08-09] MEDS ORDERED: MORPHINE SULFATE 2 MG/ML DISP.SYRIN IV ONE (05:50)
--- NOTE | 2020-08-09 08:42 | HP ---
Chief Complaint - Chief Complaint Date of Service: 08/09/20 Medical History (Last Reviewed 08/09/20 @ 04:03 by Haven Mar, RN) Constipation (Chronic) Change in bowel function (Chronic) Angina pectoris (Acute) Erectile dysfunction (Acute) I will withhold the finasteride. Hypotension due to medication (Acute) Hyperglycemia (Acute) Renal insufficiency (Acute) Atrial fibrillation (Acute) Acute bronchitis (Acute) COPD (chronic obstructive pulmonary disease) Onset Date: Unknown History of lung cancer Onset Date: ~2015 Surgical History: Surgical History (Last Reviewed 08/09/20 @ 04:03 by Haven Mar, RN) History of bronchoscopy Onset Date: ~01/2016 [facility] History of chest tube placement Onset Date: ~01/2016 [facility] History of colonoscopy Onset Date: 11/08/16 03/14/09 Ronni-sigmoid diverticula. 11/08/16 Vicente-hyperplastic polyp, di verticulosis. Recheck 10 yrs. History of elbow surgery Onset Date: 04/22/11 Madelaine-left olecranon process osteotomy, bursectomy. Excision left elbow mass-epidermal inclusion cyst w/chronic inflammation and fibrosis. History of lung surgery Onset Date: 01/23/16 [facility]-Right lower lobe of lung removed-adenocarcinoma Family History: Family History (Last Reviewed 08/09/20 @ 04:04 by Haven Mar, SUZETTE) Mother , age 80-CHF Diabetes Heart disease Father , age 96-old age Heart disease Brother , age 78-bleeding after an operation CHF (congestive heart failure) Brother Diabetes 1 brother Heart disease 1 brother Sister Alive and well Son Cancer leukemia Uncle Heart disease paternal-CABG Social History: (Last Reviewed 08/09/20 @ 04:04 by Haven Mar, RN) Social History: Marital status: household members: spouse number of children: 2 current occupational status: employed current occupation: Self employed Service: No Tobacco: Smoking Status: Former smoker Alcohol: alcohol intake: former Substance Use: substance use type: does not use Dietary Habits: caffeine: Yes Juhi/Yazidi: juhi/islam: Faith Juhi Personal Safety: victim of physical abuse: No victim of emotional abuse: No Immunizations: IMMUNIZATION HX Immunizations Up to Date Yes History of Influenza Vaccine No Hx Pneumococcal Vaccination No Allergies/Adverse Reactions: Allergies Allergy/AdvReac Type Severity Reaction Status Date / Time ampicillin [Ampicillin] Allergy Mild Lips swell Verified 08/08/20 22:17 gabapentin AdvReac Mild dizziness, Verified 08/08/20 22:17 drowsiness tramadol AdvReac Mild dizziness, Verified 08/08/20 22:17 drowsiness Home Medications: HOME MEDICATIONS nitroglycerin 0.4 mg sublingual tablet 0.4 mg SL [id number] PRN #25 tab 03/06/18 [Last Taken Unknown] Fluticasone Propionate [Flonase] 1 spray NS DAILY 10/19/18 [Last Taken Unknown] albuterol sulfate 90 mcg/actuation aerosol inhaler See Rx Instructions .ROUTE .COMPLEX #18 unknown measurement unit code: gram 09/07/19 [Last Taken Unknown] metoprolol succinate 50 mg capsule sprinkle, ext. release 24 hr 50 mg PO DAILY #90 ea 12/03/19 [Last Taken Unknown] tamsulosin 0.4 mg capsule 0.4 mg PO DAILY #90 cap 04/08/20 [Last Taken Unknown] clonazepam 1 mg tablet 1 mg PO HS #30 tab 06/17/20 [Last Taken Unknown] pantoprazole 40 mg tablet,delayed release See Rx Instructions .ROUTE .COMPLEX #30 unknown measurement unit code: not specified 07/23/20 [Last Taken Unknown] Losartan Potassium [Cozaar] 1 tab PO DAILY 08/08/20 [Last Taken Unknown] Polyethylene Glycol 3350 [Clearlax] 1 gm PO DAILY 08/08/20 [Last Taken Unknown] Exam - Exam Vital Signs: Vital Signs - Last Taken Temp 36.1 C 08/09/20 06:32 Pulse 59 L 08/09/20 06:32 Resp 16 08/09/20 06:32 BP 116/69 08/09/20 06:32 Pulse Ox 93 08/09/20 06:32 Diagnostic Studies: Abnormal Lab Results 08/08/20 08/08/20 08/09/20 Range/Units 22:30 22:35 05:20 MCHC 31.8 L (32-36) g/dl RDW 15.0 H (11.5-14.0) % Plt Count 145 L (150-450) K/mm3 Lymphocytes # 1.43 L (1.5-3.5) k/mm3 Chloride 109 H (97-106) mmol/L Est GFR (Non-Af Amer) 59 L (60-130) mL/min Random Glucose 146 H (70-110) mg/dL Troponin I 0.151 H* (0.00-0.10) ng/mL Laboratory Results WBC 6.7 K/mm3 (4.0-10.5) 08/08/20 22:35 RBC 5.30 M/mm3 (4.7-6.0) 08/08/20 22:35 Hgb 15.9 gm/dL (13.5-18.0) 08/08/20 22:35 Hct 50.0 % (42.0-52.0) 08/08/20 22:35 MCV 94.3 fl (78-100) 08/08/20 22:35 MCH 30.0 pg (27-31) 08/08/20 22:35 MCHC 31.8 g/dl (32-36) L 08/08/20 22:35 RDW 15.0 % (11.5-14.0) H 08/08/20 22:35 Plt Count 145 K/mm3 (150-450) L 08/08/20 22:35 MPV 9.6 fl (8-11.3) 08/08/20 22:35 Immature Gran % (Auto) 0.30 % (0.001-0.429) 08/08/20 22:35 Immature Gran # (Auto) 0.02 K/mm3 (0.000-0.0310) 08/08/20 22:35 Neutrophils % 68.9 % (42-75.0) 08/08/20 22:35 Lymphocytes % 21.4 % (20-51) 08/08/20 22:35 Monocytes % 6.9 % (0.0-9) 08/08/20 22:35 Eosinophils % 2.2 % (0.0-3.0) 08/08/20 22:35 Basophils % 0.3 % (0.0-1.0) 08/08/20 22:35 Nucleated RBC % 0.0 k/mm3 (0-1) 08/08/20 22:35 Neutrophils # 4.6 K/mm3 (1.3-6.0) 08/08/20 22:35 Lymphocytes # 1.43 k/mm3 (1.5-3.5) L 08/08/20 22:35 Monocytes # 0.5 k/mm3 (0.0-1.0) 08/08/20 22:35 Eosinophils # 0.2 k/mm3 (0.0-0.7) 08/08/20 22:35 Absolute Basophils 0.0 k/mm3 (0.0-0.1) 08/08/20 22:35 PT 9.7 Seconds (9.1-10.7) 08/08/20 22:30 INR (Anticoag Therapy) 0.98 INR (0.92-1.08) 08/08/20 22:30 Sodium 141 mmol/L (132-142) 08/08/20 22:30 Plasma Sodium 142 mmol/L (130-142) 08/08/20 22:30 Potassium 3.7 mmol/L (3.4-4.6) 08/08/20 22:30 Chloride 109 mmol/L (97-106) H 08/08/20 22:30 Carbon Dioxide 24.8 mmol/L (24-32.6) 08/08/20 22:30 Anion Gap 10.9 mmol/L (6.8-13.8) 08/08/20 22:30 BUN 21 mg/dL (6-23) 08/08/20 22:30 Creatinine 1.27 mg/dL (0.4-1.4) 08/08/20 22:30 Est GFR (Non-Af Amer) 59 mL/min (60-130) L 08/08/20 22:30 BUN/Creatinine Ratio 16.5 (9.0-21.6) 08/08/20 22:30 Random Glucose 146 mg/dL (70-110) H 08/08/20 22:30 Calcium 9.0 mg/dL (7.9-10.9) 08/08/20 22:30 Calcium Adj for Albumin 9.2 mg/dL (8.4-10.2) 08/08/20 22:30 Magnesium 2.0 mg/dL (1.2-2.8) 08/08/20 22:30 Total Bilirubin 0.4 mg/dL (0.0-1.1) 08/08/20 22:30 AST 12 U/L (0-48) 08/08/20 22:30 ALT 28 U/L (19-67) 08/08/20 22:30 Alkaline Phosphatase 133 U/L (50-170) 08/08/20 22:30 Troponin I 0.151 ng/mL (0.00-0.10) H* 08/09/20 05:20 B-Natriuretic Peptide 259 pg/mL (5-650) 08/08/20 22:30 Total Protein 6.2 gm/dL (6.2-8.2) 08/08/20 22:30 Albumin 3.4 gm/dl (3.4-5.0) 08/08/20 22:30 SARS-CoV-2 (PCR) Not detected (NotDetected) 08/09/20 02:08
[2020-08-09] MEDS ORDERED: METOPROLOL SUCCINATE 50 MG TABLET.SA PO SCH (09:00)
[2020-08-09] MEDS ORDERED: APIXABAN 5 MG TABLET PO SCH (09:00)
[2020-08-09] MEDS ORDERED: LOSARTAN POTASSIUM 50 MG TABLET PO SCH (09:00)
[2020-08-09] MEDS ORDERED: FLUTICASONE PROPIONATE 120 SPRAY INHALER NS SCH (09:00)
[2020-08-09] MEDS ORDERED: TAMSULOSIN HCL 0.4 MG CAP.SR.24H PO SCH (09:00)
[2020-08-09] MEDS ORDERED: ALBUTEROL SULFATE 2.5 MG/0.5 ML VIAL.NEB IH PRN (09:30)
--- NOTE | 2020-08-09 10:58 | HPDIS ---
Chief Complaint - Chief Complaint Date of Service: 08/09/20 Time of Service: 10:20 Chief Complaint: chest pain History of Present Illness: Patient with past medical history of right recurrent lung cancer, COPD, possible previous A. fib presented to the ED with central chest pain. He took a nitro at home which did not help, so he took a second and came into the ED. He had some shortness of breath at the time, but reports having baseline shortness of breath. Denies concurrent nausea. He had lung cancer 5 years ago and had the right lower lobe removed. Unfortunately he had recurrence of the cancer 6 months ago, and underwent 5 sessions of radiation. He was on Eliquis several years ago, but that was stopped. He previously saw Dr. Xavier a couple of times, but not recently. He reports moving a heavy heater 3 days ago. He also has so me tenderness of his right medial upper arm. At the time of my admission exam, his chest pain has resolved. His initial EKG showed probable afib, but did show some possible p waves. Follow up EKG this morning showed bradycardic sinus rhythm. Troponin had a minimal increase, but since it was not negative, he was admitted for chest pain rule out. Max troponin was 0.151, repeat 0.08. He has a hx of reflux, but his felt different than heartburn. His CP is likely angina or MSK strain from lifting the heavy object. Will not add an NSAID, since he will be resuming eliquis. Negative COVID. Medical History (Last Reviewed 08/09/20 @ 04:03 by Haven Mar RN) Constipation (Chronic) Change in bowel function (Chronic) Angina pectoris (Chronic) Erectile dysfunction (Acute) I will withhold the finasteride. Hypotension due to medication (Acute) Hyperglycemia (Acute) Renal insufficiency (Chronic) Atrial fibrillation (Chronic) Acute bronchitis (Acute) COPD (chronic obstructive pulmonary disease) Onset Date: Unknown History of lung cancer Onset Date: ~2015 Surgical History: Surgical History (Last Reviewed 08/09/20 @ 04:03 by Haven Mar RN) History of bronchoscopy Onset Date: ~01/2016 [facility] History of chest tube placement Onset Date: ~01/2016 [facility] History of colonoscopy Onset Date: 11/08/16 03/14/09 Kannenberg-sigmoid diverticula. 11/08/16 Valeriyan-hyperplastic polyp, diverticulosis. Recheck 10 yrs. History of elbow surgery Onset Date: 04/22/11 Madelaine-left olecranon process osteotomy, bursectomy. Excision left elbow mass-epidermal inclusion cyst w/chronic inflammation and fibrosis. History of lung surgery Onset Date: 01/23/16 [facility]-Right lower lobe of lung removed-adenocarcinoma Family History: Family History (Last Reviewed 08/09/20 @ 04:04 by Haven Mar RN) Mother , age 80-CHF Diabetes Heart disease Father , age 96-old age Heart disease Brother , age 78-bleeding after an operation CHF (congestive heart failure) Brother Diabetes 1 brother Heart disease 1 brother Sister Alive and well Son Cancer leukemia Uncle Heart disease paternal-CABG Social History: (Last Reviewed 08/09/20 @ 04:04 by Haven Mar RN) Social History: Marital status: household members: spouse number of children: 2 current occupational status: employed current occupation: Self employed Service: No Tobacco: Smoking Status: Former smoker Alcohol: alcohol intake: former Substance Use: substance use type: does not use Dietary Habits: caffeine: Yes Juhi/Jewish: juhi/jain: Confucianist Juhi Personal Safety: victim of physical abuse: No victim of emotional abuse: No Review Of Systems (GEN) - Review of Systems Generalized/Overall Review: Absent: Fever Respiratory: Present: Cough - baseline, Shortness of Breath - baseline Cardiac: Present: Chest Pain. Absent: Edema Abdominal: Present: Abdominal Pain - episodic bilateral abdominal pain since his lung surgery 5 years ago. Absent: Nausea Genitourinary: Present: No Symptoms Reported Musculoskeletal: Present: Other - right medial arm pain Immunizations: IMMUNIZATION HX Immunizations Up to Date Yes History of Influenza Vaccine No Hx Pneumococcal Vaccination No Allergies/Adverse Reactions: Allergies Allergy/AdvReac Type Severity Reaction Status Date / Time ampicillin [Ampicillin] Allergy Mild Lips swell Verified 08/08/20 22:17 gabapentin AdvReac Mild dizziness, Verified 08/08/20 22:17 drowsiness tramadol AdvReac Mild dizziness, Verified 08/08/20 22:17 drowsiness Home Medications: HOME MEDICATIONS nitroglycerin 0.4 mg sublingual tablet 0.4 mg SL [id number] PRN #25 tab 03/06/18 [Last Taken Unknown] Fluticasone Propionate [Flonase] 1 spray NS DAILY 10/19/18 [Last Taken Unknown] albuterol sulfate 90 mcg/actuation aerosol inhaler See Rx Instructions .ROUTE .COMPLEX #18 unknown measurement unit code: gram 09/07/19 [Last Taken Unknown] metoprolol succinate 50 mg capsule sprinkle, ext. release 24 hr 50 mg PO DAILY #90 ea 12/03/19 [Last Taken Unknown] tamsulosin 0.4 mg capsule 0.4 mg PO DAILY #90 cap 04/08/20 [Last Taken Unknown] clonazepam 1 mg tablet 1 mg PO HS #30 tab 06/17/20 [Last Taken Unknown] pantoprazole 40 mg tablet,delayed release See Rx Instructions .ROUTE .COMPLEX #30 unknown measurement unit code: not specified 07/23/20 [Last Taken Unknown] Losartan Potassium [Cozaar] 1 tab PO DAILY 08/08/20 [Last Taken Unknown] Polyethylene Glycol 3350 [Clearlax] 1 gm PO DAILY 08/08/20 [Last Taken Unknown] Apixaban [Eliquis] 5 mg PO BID #60 tab 08/09/20 [Last Taken Unknown] Exam - Exam Vital Signs: Vital Signs - Last Taken Temp 36.1 C 08/09/20 10:10 Pulse 56 L 08/09/20 10:10 Resp 18 08/09/20 10:10 BP 116/72 08/09/20 10:10 Pulse Ox 94 08/09/20 10:10 Constitutional: Present: Alert, Oriented x3, Cooperative, No distress, Obese Respiratory: Present: normal breath sounds, no respiratory distress Cardiovascular/Chest: Present: regular rate, rhythm, chest tender - chest tenderness with sternal pressure. Absent: edema Abdomen: Present: soft, nontender Extremity: Absent: lower extremity edema Skin Exam: Present: other - no skin erythema of right medial arm Neurologic: Present: normal mood/affect Eye contact: Present: cooperative, good eye contact Diagnostic Studies: Abnormal Lab Results 08/08/20 08/08/20 08/09/20 Range/Units 22:30 22:35 05:20 MCHC 31.8 L (32-36) g/dl RDW 15.0 H (11.5-14.0) % Plt Count 145 L (150-450) K/mm3 Lymphocytes # 1.43 L (1.5-3.5) k/mm3 Chloride 109 H (97-106) mmol/L Est GFR (Non-Af Amer) 59 L (60-130) mL/min Random Glucose 146 H (70-110) mg/dL Troponin I 0.151 H* (0.00-0.10) ng/mL Laboratory Results WBC 6.7 K/mm3 (4.0-10.5) 08/08/20 22:35 RBC 5.30 M/mm3 (4.7-6.0) 08/08/20 22:35 Hgb 15.9 gm/dL (13.5-18.0) 08/08/20 22:35 Hct 50.0 % (42.0-52.0) 08/08/20 22:35 MCV 94.3 fl (78-100) 08/08/20 22:35 MCH 30.0 pg (27-31) 08/08/20 22:35 MCHC 31.8 g/dl (32-36) L 08/08/20 22:35 RDW 15.0 % (11.5-14.0) H 08/08/20 22:35 Plt Count 145 K/mm3 (150-450) L 08/08/20 22:35 MPV 9.6 fl (8-11.3) 08/08/20 22:35 Immature Gran % (Auto) 0.30 % (0.001-0.429) 08/08/20 22:35 Immature Gran # (Auto) 0.02 K/mm3 (0.000-0.0310) 08/08/20 22:35 Neutrophils % 68.9 % (42-75.0) 08/08/20 22:35 Lymphocytes % 21.4 % (20-51) 08/08/20 22:35 Monocytes % 6.9 % (0.0-9) 08/08/20 22:35 Eosinophils % 2.2 % (0.0-3.0) 08/08/20 22:35 Basophils % 0.3 % (0.0-1.0) 08/08/20 22:35 Nucleated RBC % 0.0 k/mm3 (0-1) 08/08/20 22:35 Neutrophils # 4.6 K/mm3 (1.3-6.0) 08/08/20 22:35 Lymphocytes # 1.43 k/mm3 (1.5-3.5) L 08/08/20 22:35 Monocytes # 0.5 k/mm3 (0.0-1.0) 08/08/20 22:35 Eosinophils # 0.2 k/mm3 (0.0-0.7) 08/08/20 22:35 Absolute Basophils 0.0 k/mm3 (0.0-0.1) 08/08/20 22:35 PT 9.7 Seconds (9.1-10.7) 08/08/20 22:30 INR (Anticoag Therapy) 0.98 INR (0.92-1.08) 08/08/20 22:30 Sodium 141 mmol/L (132-142) 08/08/20 22:30 Plasma Sodium 142 mmol/L (130-142) 08/08/20 22:30 Potassium 3.7 mmol/L (3.4-4.6) 08/08/20 22:30 Chloride 109 mmol/L (97-106) H 08/08/20 22:30 Carbon Dioxide 24.8 mmol/L (24-32.6) 08/08/20 22:30 Anion Gap 10.9 mmol/L (6.8-13.8) 08/08/20 22:30 BUN 21 mg/dL (6-23) 08/08/20 22:30 Creatinine 1.27 mg/dL (0.4-1.4) 08/08/20 22:30 Est GFR (Non-Af Amer) 59 mL/min (60-130) L 08/08/20 22:30 BUN/Creatinine Ratio 16.5 (9.0-21.6) 08/08/20 22:30 Random Glucose 146 mg/dL (70-110) H 08/08/20 22:30 Calcium 9.0 mg/dL (7.9-10.9) 08/08/20 22:30 Calcium Adj for Albumin 9.2 mg/dL (8.4-10.2) 08/08/20 22:30 Magnesium 2.0 mg/dL (1.2-2.8) 08/08/20 22:30 Total Bilirubin 0.4 mg/dL (0.0-1.1) 08/08/20 22:30 AST 12 U/L (0-48) 08/08/20 22:30 ALT 28 U/L (19-67) 08/08/20 22:30 Alkaline Phosphatase 133 U/L (50-170) 08/08/20 22:30 Troponin I 0.084 ng/mL (0.00-0.10) 08/09/20 09:16 B-Natriuretic Peptide 259 pg/mL (5-650) 08/08/20 22:30 Total Protein 6.2 gm/dL (6.2-8.2) 08/08/20 22:30 Albumin 3.4 gm/dl (3.4-5.0) 08/08/20 22:30 SARS-CoV-2 (PCR) Not detected (NotDetected) 08/09/20 02:08 Assessment/Plan - Narrative Narrative: Differential includes ACS, angina, reflux, MSK, infection. Max troponin of 0.151. No concerning EKG findings. He was probably in afib on admission, and has since converted to sinus, but is bradycardic. will resume eliquis. I have concern that radiation may have affected his cardiac tissue, so will order a pharmacologic stress test. He picked up a heavy object, which could have contributed to his presentation. However, he also has a history of angina in his chart. He no longer sees cardiology, but since he has had CP requiring a hospital stay, will order a cardiology referral. His BP was a bit low during his stay, so will hold his home losartan until follow up. I'd like to resume metoprolol with his history of angina, but his HR is in the 50's, so will hold this also until follow up later this month. - Assessment/Plan (1) Chest pain Problem: Acute (2) Recurrent lung cancer of unknown cell type Problem: Acute (3) Constipation Assessment: May have developed adhesions after his lung cancer surgery 5 years ago. Problem: Chronic Qualifiers: Constipation type: unspecified constipation type Qualified Code(s): K59.00 - Constipation, unspecified (4) Angina pectoris Problem: Chronic (5) Renal insufficiency Problem: Chronic (6) Atrial fibrillation Problem: Chronic Qualifiers: Atrial fibrillation type: paroxysmal Qualified Code(s): I48.0 - Paroxysmal atrial fibrillation (7) COPD (chronic obstructive pulmonary disease) Problem: Chronic Qualifiers: COPD type: COPD with acute exacerbation Qualified Code(s): J44.1 - Chronic obstructive pulmonary disease with (acute) exacerbation (8) Hypertension Problem: Chronic Qualifiers: Hypertension type: essential hypertension Qualified Code(s): I10 - Essential (primary) hypertension (1) Chest pain Problem: Acute (2) Recurrent lung cancer of unknown cell type Problem: Acute (3) Constipation Problem: Chronic Qualifiers: Constipation type: unspecified constipation type Qualified Code(s): K59.00 - Constipation, unspecified (4) Angina pectoris Problem: Chronic (5) Renal insufficiency Problem: Chronic (6) Atrial fibrillation Problem: Chronic Qualifiers: Atrial fibrillation type: paroxysmal Qualified Code(s): I48.0 - Paroxysmal atrial fibrillation (7) COPD (chronic obstructive pulmonary disease) Problem: Chronic Qualifiers: COPD type: COPD with acute exacerbation Qualified Code(s): J44.1 - Chronic obstructive pulmonary disease with (acute) exacerbation (8) Hypertension Problem: Chronic Qualifiers: Hypertension type: essential hypertension Qualified Code(s): I10 - Essential (primary) hypertension Date of Discharge:: 08/09/20 Hospital Course: see above Procedures Performed: none Results and Findings: Lab Pending Results 08/08/20 22:30: PT 9.7, INR (Anticoag Therapy) 0.98 08/08/20 22:30: Sodium 141, Plasma Sodium 142, Potassium 3.7, Chloride 109 H, Carbon Dioxide 24.8, Anion Gap 10.9, BUN 21, Creatinine 1.27, Est GFR (Non-Af Amer) 59 L, BUN/Creatinine Ratio 16.5, Random Glucose 146 H, Calcium 9.0, Calcium Adj for Albumin 9.2, Magnesium 2.0, Total Bilirubin 0.4, AST 12, ALT 28, Alkaline Phosphatase 133, Troponin I Less than 0.017, B-Natriuretic Peptide 259, Total Protein 6.2, Albumin 3.4 08/08/20 22:35: WBC 6.7, RBC 5.30, Hgb 15.9, Hct 50.0, MCV 94.3, MCH 30.0, MCHC 31.8 L, RDW 15.0 H, Plt Count 145 L, MPV 9.6, Immature Gran % (Auto) 0.30, Immature Gran # (Auto) 0.02, Neutrophils % 68.9, Lymphocytes % 21.4, Monocytes % 6.9, Eosinophils % 2.2, Basophils % 0.3, Nucleated RBC % 0.0, Neutrophils # 4.6, Lymphocytes # 1.43 L, Monocytes # 0.5, Eosinophils # 0.2, Absolute Basophils 0.0 08/09/20 01:00: Troponin I 0.090 08/09/20 02:08: SARS-CoV-2 (PCR) Not detected 08/09/20 05:20: Troponin I 0.151 H* 08/09/20 09:16: Troponin I 0.084 Discharge Location: Home Disposition: Home self-care Condition: Stable Discharge Activity: Activity as tolerated Discharge Diet: General/regular food Referrals: Baltazar Engle MD [Primary Care Provider] - (previously scheduled) Additional Patient Instructions (free text): Please schedule with cardiology. Patient has seen Dr. Xavier in the past. Prescriptions (Any new or edited meds): Apixaban [Eliquis] 5 mg PO BID #60 tab Transmission Status: Pending to [facility], [place], [place] Complete Home Medications List: Complete Home Medication List: nitroglycerin 0.4 mg sublingual tablet 0.4 mg SL [id number] PRN #25 tab 03/06/18 Fluticasone Propionate [Flonase] 1 spray NS DAILY 10/19/18 albuterol sulfate 90 mcg/actuation aerosol inhaler See Rx Instructions .ROUTE .COMPLEX #18 unknown measurement unit code: gram 09/07/19 metoprolol succinate 50 mg capsule sprinkle, ext. release 24 hr 50 mg PO DAILY #90 ea 12/03/19 tamsulosin 0.4 mg capsule 0.4 mg PO DAILY #90 cap 04/08/20 clonazepam 1 mg tablet 1 mg PO HS #30 tab 06/17/20 pantoprazole 40 mg tablet,delayed release See Rx Instructions .ROUTE .COMPLEX #30 unknown measurement unit code: not specified 07/23/20 Losartan Potassium [Cozaar] 1 tab PO DAILY 08/08/20 Polyethylene Glycol 3350 [Clearlax] 1 gm PO DAILY 08/08/20 Apixaban [Eliquis] 5 mg PO BID #60 tab 08/09/20 Amb Orders for Discharge: NUC Pharmacological Stress Time Frame: 1 Week, Facility: [facility], Location: Radiology
[2020-08-09 11:56] VITALS: BP 148/83
[2020-08-09] MEDS ORDERED: clonazePAM 1 MG TABLET PO SCH (21:00)
[2020-08-10] MEDS ORDERED: PANTOPRAZOLE SODIUM 40 MG TABLET.EC PO SCH (09:00)
[2020-08-10] MEDS ORDERED: POLYETHYLENE GLYCOL 3350 17 GM PACKET PO SCH (09:00)
== END 2020-08-09 11:59 | disposition home or self-care (01) ==
LOC: MS 22:08 → ER 22:08 → MS 08-09 03:25
PROVIDERS: ADMIT Family Medicine; ATTEND Family Medicine
DX: I12.9 Hypertensive chronic kidney disease with stage 1 through stage 4 chronic kidney disease, or unspecified chronic kidney disease; N18.9 Chronic kidney disease, unspecified; Z87.891 Personal history of nicotine dependence; Z79.01 Long term (current) use of anticoagulants; R07.9 Chest pain, unspecified; K59.00 Constipation, unspecified; C34.91 Malignant neoplasm of unspecified part of right bronchus or lung; R77.8 Other specified abnormalities of plasma proteins; I48.0 Paroxysmal atrial fibrillation